=== PATIENT | female | born 1955 | race Caucasian/White ===

== ENCOUNTER 2020-01-18 10:15 | Day surgery (SDC) | payer BC ==
[2020-01-18 14:15] VITALS: TEMP 97.9
[2020-01-18 14:42] VITALS: BP 121/77; PULSE 60
--- NOTE | 2020-01-20 11:17 | PATH ---
Surgical Pathology Report Patient Name: VICKI BLANC [facility]. Rec. #: [id number] /Age/Gender: 1955 (Age: 64) / F Account: [id number] Location: [facility]-ENDOSCOPY Taken: 01/18/2020 Received: 01/19/2020 Reported: 01/20/2020 Physicians: Lian Tapia M.D. Specimen(s) Received A: TRANSVERSE COLON B: POLYP SIGMOID C: POLYP SIGMOID #2 D: POLYP SIGMOID #3 Clinical History History of colon polyps, family history of colon cancer Postoperative diagnosis: Colon polyps Final Diagnosis A. TRANSVERSE COLON, POLYP, BIOPSY: TUBULAR ADENOMA(S). B. SIGMOID COLON, POLYP, BIOPSY: POLYPOID COLONIC MUCOSA WITH SMALL LYMPHOID AGGREGATE. C. SIGMOID COLON, POLYP #2, BIOPSY: HYPERPLASTIC POLYP D. SIGMOID COLON, POLYP #3, BIOPSY: HYPERPLASTIC POLYP. Electronically Signed Ada Velasco M.D. Gross Description A. Received in formalin, labeled "polyp transverse colon x2" are 2 [place], irregular portions of soft tissue averaging 0.4 cm. in greatest dimension. The specimens are submitted in toto in one cassette. B. Received in formalin, labeled "polyp sigmoid" is a [place], irregular portion of soft tissue measuring 0.6 cm. in greatest dimension. The specimen is submitted in toto in one cassette. C. Received in formalin, labeled "polyp sigmoid #2" are 2 [place], irregular portions of soft tissue measuring 0.3 and 0.5 cm. in greatest dimension. The specimens are submitted in toto in one cassette. D. Received in formalin, labeled "polyp sigmoid #3" is a [place], irregular portion of soft tissue measuring 0.4 cm. in greatest dimension. The specimen is submitted in toto in one cassette. DL/01/19/2020 saudi/01/19/2020
== END 2020-01-18 15:00 | disposition home or self-care (01) ==
LOC: JASU-ENDO 10:15
PROVIDERS: ATTEND Internal Medicine Gastroenterology
PROC: 0DBL8ZX Excision of Transverse Colon, Via Natural or Artificial Opening Endoscopic, Diagnostic (ICD-10-PCS; 2020-01-18)
PROC: 0DBN8ZX Excision of Sigmoid Colon, Via Natural or Artificial Opening Endoscopic, Diagnostic (ICD-10-PCS; principal; 2020-01-18 11:30)
DX: Z86.010 Personal history of colon polyps (principal); D12.5 Benign neoplasm of sigmoid colon; D12.3 Benign neoplasm of transverse colon
CPT/HCPCS: 88305-TC